=== PATIENT | female | born 1935 | race Caucasian/White ===

== ENCOUNTER 2018-11-17 07:18 | Inpatient (IN) | payer BC ==
[2018-11-17] MEDS ORDERED: GABAPENTIN 300 MG CAPSULE (FP) PO ONE (07:37)
[2018-11-17] MEDS ORDERED: TRANEXAMIC ACID 1000 MG/10 ML VIAL IVPUSH ONE (07:37)
[2018-11-17] MEDS ORDERED: CEFAZOLIN 2 GM in DEXTROSE 5%-WATER - 50 ML IVPB ONE (07:37)
[2018-11-17] MEDS ORDERED: CELECOXIB 200 MG CAPSULE PO ONE (07:37)
[2018-11-17] MEDS ORDERED: oxyCODONE HCL 10 MG SUSTAINED ACTING TABLET PO ONE (07:37)
--- NOTE | 2018-11-17 08:02 | HP ---
Satellite [facility] - Chief Complaint Chief Complaint: right knee pain - Past Medical History Allergies/Adverse Reactions: Allergies Allergy/AdvReac Type Severity Reaction Status Date / Time No Known Drug Allergies Allergy Verified 03/05/12 07:06 - Current Medications Current Medications: Home Medications Medication Instructions Recorded Multivitamin [Daily Multivitamin] 1 each PO DAILY 03/04/12 Acetaminophen [Tylenol] 650 mg PO Q4H #0 tablet 03/10/12 Aspirin Coated [Ecotrin -] 81 mg PO DAILY #0 tablet.ec 03/10/12 Beta-Carotene(A)-Vits C,E/Mins 1 each PO DAILY #0 tablet 03/10/12 [Ocutabs Tablet] Atorvastatin Ca [Lipitor -] 20 mg PO DAILY 06/14/13 Irbesartan/Hydrochlorothiazide 1 tab PO DAILY 06/14/13 [Avalide 150-12.5 mg Tablet] Latanoprost/Pf [Latanoprost 0.005% 7.5 ml OP HS 11/02/18 Eye Drop] Metoprolol Succinate [Toprol XL -] 25 mg PO DAILY 11/02/18 Satellite Physical Exam - Physical Examination General Appearance: Well Nourished, Well Developed, Alert & Oriented x3 ENT: Clear Lung: Normal air movement Heart: Regular rate & rhythm Extremities: Other (right knee- +swelling, + ttp, decr rom, nvi, xrays show grade 4 tricompartmental djd) Neurological: Intact, Alert, Oriented Satellite Impression/Plan - Impression/Plan Impression: right knee djd Operative Procedure: right tushar tkr Date to be Performed: 11/17/18
[2018-11-17 08:28] VITALS: BMI 31.4
[2018-11-17] MEDS ORDERED: MIDAZOLAM HCL 2 MG/2 ML SINGLE DOSE VIAL ONE ×2 (09:01→10:00)
[2018-11-17] MEDS ORDERED: BUPIVACAINE LIPOSOME/PF (EXPAREL) 266 MG/20 ML VIAL ONE (09:01)
[2018-11-17] MEDS ORDERED: ceFAZolin SODIUM 1 GM VIAL ONE ×2 (09:14→09:53)
[2018-11-17] MEDS ORDERED: VANCOMYCIN 1,000 MG VIAL (RESTRICTED TO ID ONLY) ONE (09:14)
[2018-11-17] MEDS ORDERED: BUPIVACAINE HCL/PF 0.5% (5MG/ML) 10 ML VIAL ONE (09:45)
[2018-11-17] MEDS ORDERED: ONDANSETRON 4 MG/2 ML VIAL IVPUSH PRN (09:48)
[2018-11-17] MEDS ORDERED: MAGNESIUM HYDROX 2400MG/30ML ORAL SUSPENSION 30 ML CUP PO PRN (09:48)
[2018-11-17] MEDS ORDERED: MAG HYDROX/AL HYDROX/SIMETH 30 ML UNIT-DOSE CUP PO PRN (09:48)
[2018-11-17] MEDS ORDERED: ePHEDrine SULFATE 50 MG/1 ML AMPULE ONE (09:52)
[2018-11-17] MEDS ORDERED: TRANEXAMIC ACID 1000 MG/10 ML VIAL ONE ×2 (09:53→10:52)
[2018-11-17] MEDS ORDERED: ONDANSETRON 4 MG/2 ML VIAL ONE (09:57)
[2018-11-17] MEDS ORDERED: DEXAMETHASONE SOD PHOSPHATE 4 MG/1 ML VIAL ONE (09:57)
[2018-11-17] MEDS ORDERED: HYDROCHLOROTHIAZIDE PO SCH (10:00)
[2018-11-17] MEDS ORDERED: [UNRECOGNIZED DRUG - OTHER] PO SCH (10:00)
[2018-11-17] MEDS ORDERED: IRBESARTAN PO SCH (10:00)
[2018-11-17] MEDS ORDERED: metoPROLOL SUCCINATE 25 MG TAB.SR.24H (FP) PO SCH (10:00)
[2018-11-17] MEDS ORDERED: LACTATED RINGERS SOLUTION 1,000 ML IV SCH (10:00)
[2018-11-17] MEDS ORDERED: oxyCODONE HCL 5 MG TABLET PO PRN ×2 (11:01)
[2018-11-17] MEDS ORDERED: VANCOMYCIN 1,000 MG VIAL (RESTRICTED TO ID ONLY) IVPB ONE (11:27)
--- NOTE | 2018-11-17 11:55 | OP ---
Operative Note - Note: Operative Date: 11/17/18 (shona) Pre-Operative Diagnosis: right knee djd Operation: right tushar tkr Post-Operative Diagnosis: Same as Pre-op Surgeon: Seth Price Printing Worker Supervisor: Derek Polanco Anesthesiologist/REVENUE ACCOUNTING MANAGER: Dyan Chapa Anesthesia: Spinal, Local Specimens Removed: bone fragments Estimated Blood Loss (mls): 100 Operative Report Dictated: Yes
[2018-11-17] MEDS: ACETAMINOPHEN 1000 MG/100 ML VIAL (NON FORMULARY) IVPB ONE (12:30)
[2018-11-17] MEDS: CEFAZOLIN 2 GM/D5W 2 GM/50 ML ML IVPB SCH (17:52)
[2018-11-17] MEDS: ACETAMINOPHEN 325 MG TABLET (FP) PO SCH (17:52)
[2018-11-17] MEDS: SENNOSIDES/DOCUSATE COMBO (SENNA PLUS) TABLET (UD) PO SCH (21:29)
[2018-11-17] MEDS: ATORVASTATIN CA 20 MG TABLET (FP) PO SCH (21:29)
[2018-11-17] MEDS: oxyCODONE HCL 10 MG SUSTAINED ACTING TABLET PO SCH (21:29)
[2018-11-17] MEDS: GABAPENTIN 300 MG CAPSULE (FP) PO SCH (21:29)
[2018-11-17] MEDS ORDERED: PATIENT'S OWN MEDICATION (NON-FORMULARY) (Latanoprost/Pf [Latanoprost 0.005% Eye Drop] 7.5 OP SCH (22:00)
[2018-11-18] MEDS: CEFAZOLIN 2 GM/D5W 2 GM/50 ML ML IVPB SCH (02:00)
[2018-11-18] MEDS: ACETAMINOPHEN 325 MG TABLET (FP) PO SCH ×4 (06:10→18:38)
[2018-11-18] MEDS: SENNOSIDES/DOCUSATE COMBO (SENNA PLUS) TABLET (UD) PO SCH ×3 (06:51→21:22)
[2018-11-18] MEDS: PANTOPRAZOLE 40 MG TABLET (FP) PO SCH ×2 (06:51→09:12)
[2018-11-18] MEDS: ACETAMINOPHEN 1000 MG/100 ML VIAL (NON FORMULARY) IVPB ONE (06:52)
[2018-11-18 07:55] LABS: HEMATOCRIT 32.3 % (32.4-45.2); HEMOGLOBIN 10.9 GM/dl (10.7-15.3); MCH 31.6 pg (25.7-33.7); MCHC 33.8 g/dl (32.0-36.0); MEAN CELL VOLUME 93.7 fl (80-96); MEAN PLT VOLUME 8.8 fl (7.5-11.1); PLATELET COUNT 281 K/MM3 (134-434); RBC 3.44 M/mm3 (3.60-5.2); RDW 11.7 % (11.6-15.6); WHITE BLOOD COUNT 12.3 K/mm3 (4.0-10.8)
[2018-11-18] MEDS: ASPIRIN 325 MG TABLET PO SCH (08:17)
[2018-11-18] MEDS: LOSARTAN 50MG/HCTZ 12.5MG 1 TAB (FP) PO SCH (09:12)
[2018-11-18] MEDS: GABAPENTIN 300 MG CAPSULE (FP) PO SCH ×2 (09:12→21:22)
[2018-11-18] MEDS: metoPROLOL SUCCINATE 25 MG TAB.SR.24H (FP) PO SCH (09:12)
[2018-11-18] MEDS: MULTIVITAMINS (DAILY MVI) TABLET (FP) PO SCH (09:12)
[2018-11-18] MEDS: oxyCODONE HCL 10 MG SUSTAINED ACTING TABLET PO SCH ×2 (09:12→21:23)
[2018-11-18] MEDS ORDERED: HYDROCHLOROTHIAZIDE 12.5 MG CAPSULE (FP) PO SCH (10:00)
--- NOTE | 2018-11-18 12:00 | PN ---
Progress Note (short form) - Note Progress Note: Ortho Pt seen and examined s/p right tushar tkr pod #1 Selected Entries 11/18/18 09:00 Temperature 98.3 F Pulse Rate 63 Respiratory 16 Rate Blood Pressure 140/73 Laboratory Tests 11/18/18 07:18 WBC 12.3 H Hgb 10.9 Hct 32.3 L Plt Count 281 dressing c/d/i, calf soft, nt rom 0-30, nvi a/p PT dvt ppx pain control d/c planning for rehab/home for tomorrow
--- NOTE | 2018-11-18 13:52 | OP ---
DATE OF OPERATION: 11/17/2018 PREOPERATIVE DIAGNOSIS: Degenerative joint disease, right knee. POSTOPERATIVE DIAGNOSIS: Degenerative joint disease, right knee. PROCEDURE: Right total knee replacement. SURGICAL ATTENDING: Seth Price MD MULTIPLE DRUM SANDER HELPER: LYUBOV Alejandra ANESTHESIA: Spinal and regional. CLOSURE: Cemented Triathlon knee system with a 4 femur, 4 tibia, a 13 TS polyethylene, a 100-mm tibial stem, No. 1 Vicryl to fascia, 0 and 2-0 subcutaneous, and 3-0 Monocryl subcuticular with skin glue, 4-0 undyed Vicryl for pin sites. ESTIMATED BLOOD LOSS: 100 mL. COMPLICATIONS: None. CONDITION: To recovery in stable condition. DESCRIPTION OF OPERATIVE PROCEDURE: Patient was taken to the operating room on November 17, 2018. Spinal anesthesia as well as regional anesthesia were administered by the anesthesiologist. IV Kefzol and TXA were administered prophylactically prior to the case. A well-padded pneumatic tourniquet was placed on the right proximal thigh. The right lower extremity was prepped and draped in the usual sterile fashion. A 10-12-cm longitudinal midline incision was centered over the patella. Hemostasis was achieved with Bovie cautery. Sharp dissection was carried down to the level of the extensor mechanism with sufficient flaps to perform the procedure. Medial parapatellar arthrotomy was then performed. Then, patella was inverted and the knee was flexed up. Subperiosteal dissection was done on the anterior medial proximal tibia. This was done until the knee could be brought forward. This was assisted by transecting the anterior horn of the lateral meniscus. A checkpoint was malletted in both the femur and in the tibia. Two threaded pins were placed anterior medial towards posterior lateral from the medial femoral condyle proximal to the osteotomy level. These pins were fastened to femoral navigation array. With 2 small stab incisions 1 handbreadth below the tibial tubercle, 2 pins were drilled and then secured to the tibial array. The knee was then registered with the navigation device with central rotation of the hip, medial and lateral malleoli, and multiple sites on the femur and the tibia. Confirmation of excellent registration was confirmed by popping the bubbles. At this time, all osteophytes were removed circumferentially, especially large osteophytes medially and posteriorly. The knee was then tensioned varus/valgus and . This was done in both flexion and in extension. There was significant flexion contracture, so, the femur was moved up 2 mm to facilitate that. The tibial bone on the medial side was markedly worn, and the 9-mm cut would be above the bone surface. Therefore, I decided to drop the tibia 2 mm for insertion of at least an 11polyethylene, so, that we can have a flat bone surface to cut. The sizes of the components were optimized in varus/valgus, and rotation was optimized to get equal gaps in both flexion and extension. The robot was then brought into the field and registered. The was then made on both the femur and the tibia using the robotic arm assistance to cut the bone. After the cuts, dog bones were used to ascertain equal gaps in both flexion and extension. This was seen to be the case with a 13-mm insert. There was some laxity at the MCL due to the marked deformity that was preoperatively. Thus, we decided to use a TS implant. Trial at the box was then made in the femur. The trial components were then applied. The range of motion went from full extension to full flexion with excellent stability throughout the range of motion. The patella was calibrated for thickness and osteotomized at the appropriate level. A 32 lollypop was used to drill the lug holes in the patella, and a trial reduction was performed. The patella tracked perfectly throughout the range of motion with no thumbs. The tibial baseplate was confirmed to be with the appropriate rotation by marking the center of rotation on the tibia and ensuring that the navigation device proved that the tibial component was in the appropriate external rotation. The keyhole was then made. There was slight thinning of the cortex medially. It was thus decided to add a stem to the tibial component of 100 mm. It was drilled appropriately. Trial components were removed. The tourniquet was inflated after the leg was exsanguinated with an Esmarch bandage. The tourniquet was inflated to 275 mm. The knee was post antibiotic irrigated and dried. The real components were then cemented in using modern generation cement techniques with antibiotic cement and pressurization. All excess cement was removed. After the cement was hardened, the knee was thoroughly inspected to remove any excess cement. A 13-mm TS implant was then clipped into place. Range of motion was from full extension, full flexion with excellent tracking of the patella throughout. Vancomycin powder was placed in the incision. . The medial parapatellar arthrotomy was then closed using No. 1 Vicryl. Post closing the retinaculum, the knee was again taken through a range of motion to ensure no undue tension after repair and excellent tracking of the patella throughout with excellent varus/valgus and anterior/posterior stability. When this was confirmed, the rest of the closure was performed in layers with 2-0 Vicryl subcutaneous and 3-0 Monocryl subcuticular with skin glue. This was done after the pins and checkpoints were removed. The pin site on the tibia was post antibiotic irrigated and closed with 4-0 undyed Vicryl. Sterile Aquacel dressing followed by a Mcfadden dressing were applied. Patient was awakened from anesthesia and transferred to recovery in stable condition. Tourniquet was deflated at the end of this case. Total tourniquet time was approximately 25 minutes. No complications. Carson TURNER/[id number]
--- NOTE | 2018-11-18 13:54 | PN ---
Progress Note, Physician Chief Complaint: s/p right total knee replacement under spinal anesthesia. History of Present Illness: peripheral nerve block for pain control - Current Medication List Current Medications: Active Medications Acetaminophen (Tylenol -) 650 mg PO Q6H [facility] Stop: 11/20/18 17:59 Last Admin: 11/18/18 11:22 Dose: 650 mg Al Hydroxide/Mg Hydroxide (Mylanta Oral Suspension -) 30 ml PO Q4H PRN PRN Reason: DYSPEPSIA Aspirin (Asa -) 325 mg PO DAILY@0800 [facility] Last Admin: 11/18/18 08:17 Dose: 325 mg Atorvastatin Calcium (Lipitor -) 20 mg PO HS [facility] Last Admin: 11/17/18 21:29 Dose: 20 mg Gabapentin (Neurontin -) 300 mg PO BID [facility] Last Admin: 11/18/18 09:12 Dose: 300 mg HCTZ/Losartan Potassium (Hyzaar -) 1 tab PO DAILY [facility] Last Admin: 11/18/18 09:12 Dose: 1 tab Magnesium Hydroxide (Milk Of Magnesia -) 30 ml PO PRN PRN PRN Reason: CONSTIPATION Metoprolol Succinate (Toprol Xl -) 25 mg PO DAILY [facility] Last Admin: 11/18/18 09:12 Dose: 25 mg Multivitamins/Minerals/Vitamin C (Tab-A-Vit -) 1 tab PO DAILY [facility] Last Admin: 11/18/18 09:12 Dose: 1 tab Non-Formulary Medication (Latanoprost/Pf [Latanoprost 0.005% Eye Drop]) 7.5 ml OP HS [facility] Ondansetron HCl (Zofran Injection) 4 mg IVPUSH Q6H PRN PRN Reason: NAUSEA Oxycodone HCl (Roxicodone -) 5 mg PO Q3H PRN PRN Reason: PAIN LEVEL 1-5 Last Admin: 11/17/18 17:52 Dose: 5 mg Oxycodone HCl (Roxicodone -) 10 mg PO Q3H PRN PRN Reason: PAIN LEVEL 6-10 Oxycodone HCl (Oxycontin -) 10 mg PO BID [facility] Stop: 11/20/18 11:02 Last Admin: 11/18/18 09:12 Dose: 10 mg Pantoprazole Sodium (Protonix -) 40 mg PO DAILY [facility] Last Admin: 11/18/18 09:12 Dose: 40 mg Senna/Docusate Sodium (Pericolace -) 2 tablet PO BID [facility] Last Admin: 11/18/18 09:12 Dose: 2 tablet - Objective Vital Signs: Vital Signs Temperature 98.3 F 11/18/18 09:00 Pulse Rate 63 11/18/18 09:00 Respiratory Rate 16 11/18/18 09:00 Blood Pressure 140/73 11/18/18 09:00 O2 Sat by Pulse Oximetry (%) 95 11/18/18 07:03 Constitutional: Yes: Well Nourished Cardiovascular: Yes: WNL Respiratory: Yes: WNL Gastrointestinal: Yes: WNL Labs: CBC, BMP 11/18/18 07:18 Assessment/Plan No adverse anesthetic complications, pain controlled, complaining of some dry mouth, otherwise the dept of anesthesia will sign off care at this time
[2018-11-18] MEDS: ATORVASTATIN CA 20 MG TABLET (FP) PO SCH (21:21)
[2018-11-19] MEDS: ACETAMINOPHEN 325 MG TABLET (FP) PO SCH ×2 (01:30→05:28)
[2018-11-19 06:50] VITALS: BP 117/49; PULSE 69; TEMP 98.9
[2018-11-19 07:56] LABS: HEMATOCRIT 29.7 % (32.4-45.2); HEMOGLOBIN 9.9 GM/dl (10.7-15.3); MCH 31.4 pg (25.7-33.7); MCHC 33.3 g/dl (32.0-36.0); MEAN CELL VOLUME 94.1 fl (80-96); MEAN PLT VOLUME 8.7 fl (7.5-11.1); PLATELET COUNT 261 K/MM3 (134-434); RBC 3.16 M/mm3 (3.60-5.2); RDW 12.3 % (11.6-15.6); WHITE BLOOD COUNT 10.2 K/mm3 (4.0-10.8)
--- NOTE | 2018-11-19 08:10 | PN ---
Progress Note (short form) - Note Progress Note: Ortho Pt seen and examined s/p right tushar tkr pod #2 Selected Entries 11/19/18 06:00 Temperature 98.9 F Pulse Rate 69 Respiratory 19 Rate Blood Pressure 117/49 L Laboratory Tests 11/19/18 07:01 WBC Pending Hgb Pending Hct Pending Plt Count Pending dressing c/d/i, calf soft, nt rom 0-70, nvi a/p PT dvt ppx pain control d/c planning for rehab
--- NOTE | 2018-11-19 09:37 | DS ---
Physical Examination Vital Signs: Vital Signs Temperature 98.9 F 11/19/18 06:00 Pulse Rate 69 11/19/18 06:00 Respiratory Rate 19 11/19/18 06:00 Blood Pressure 117/49 L 11/19/18 06:00 O2 Sat by Pulse Oximetry (%) 100 11/19/18 06:00 Labs: CBC, BMP 11/19/18 07:01 Discharge Summary Reason For Visit: OSTEOARTHRITIS Procedures: Principal: right tkr Hospital Course: admitted for elective right tushar tkr, uneventful post-op, stable for d/c Condition: Good - Instructions Diet, Activity, Other Instructions: Post-op Instructions-Total Knee Replacement Call the office for a follow-up appointment in 1 week - [phone] Aspirin 325mg daily for 6 weeks. Pain medication was sent into your pharmacy. Apply Graduated Compression Stockings (TEDs) to both lower extremities- remove daily for hygiene ONLY Apply Sequential Compression Device (SCDs) to both Lower extremities remove for PT and hygiene ONLY Apply cold packs to affected area for 15 minutes every 2 hours. Physical Therapist will come to your home for the first 5 days. You will be set up with outpatient PT at your first post-operative visit. Patient may ambulate as tolerated-encourage self care (at least every 2-3 hours while awake) with walker or cane Maintain Aquacel (waterproof) dressing to operative wound (will be removed by surgeon at first office visit) Shower with Aquacel dressing in place-if Aquacel integrity compromised, remove and apply dry sterile dressing and notify Orthopedist. DO NOT SHOWER unless Orthopedists approves without Aquacel dressing CONTACT THE OFFICE FOR ANY CHANGE IN YOUR CONDITION (for example-fever greater than 102 degrees, excessive bleeding from operative site, purulent drainage, severe swelling or pain) GO TO THE EMERGENCY ROOM IF THERE IS A MEDICAL EMERGENCY Knee Precautions: * Keep a rolled towel under affected heel while in bed or chair (to keep knee in extension) * Keep affected leg elevated except during mealtimes * DO NOT PLACE PILLOW UNDER AFFECTED KNEE * If you have any questions, please do not hesitate to call the office - . Referrals: Seth Price MD [Staff Physician] - Disposition: VNS/HOME HEALTH CARE - Home Medications Comprehensive Discharge Medication List: Ambulatory Orders Multivitamin [Daily Multivitamin] 1 each PO DAILY 09/05/12 Acetaminophen [Tylenol .Regular Strength -] 650 mg PO Q4H #0 tablet 03/10/12 Beta-Carotene(A)-Vits C,E/Mins [Ocutabs Tablet] 1 each PO DAILY #0 tablet Atorvastatin Ca [Lipitor] 20 mg PO DAILY 06/14/13 Irbesartan/Hydrochlorothiazide [Avalide 150-12.5 mg Tablet] 1 tab PO DAILY 06/14 Latanoprost/Pf [Latanoprost 0.005% Eye Drop] 7.5 ml OP HS 11/02/18 Metoprolol Succinate [Toprol XL -] 25 mg PO DAILY 11/02/18 Aspirin [ASA -] 325 mg PO DAILY@0800 tablet 11/17/18 Oxycodone HCl/Acetaminophen [Percocet 5-325 mg Tablet -] 1 - 2 tab PO Q6H #50 tab MDD 8 11/17/18
[2018-11-19] MEDS: GABAPENTIN 300 MG CAPSULE (FP) PO SCH (11:02)
[2018-11-19] MEDS: LOSARTAN 50MG/HCTZ 12.5MG 1 TAB (FP) PO SCH (11:02)
[2018-11-19] MEDS: ASPIRIN 325 MG TABLET PO SCH (11:02)
[2018-11-19] MEDS: MULTIVITAMINS (DAILY MVI) TABLET (FP) PO SCH (11:03)
[2018-11-19] MEDS: metoPROLOL SUCCINATE 25 MG TAB.SR.24H (FP) PO SCH (11:03)
[2018-11-19] MEDS: PANTOPRAZOLE 40 MG TABLET (FP) PO SCH (11:03)
[2018-11-19] MEDS: SENNOSIDES/DOCUSATE COMBO (SENNA PLUS) TABLET (UD) PO SCH (11:03)
[2018-11-19] MEDS: oxyCODONE HCL 10 MG SUSTAINED ACTING TABLET PO SCH (11:04)
--- NOTE | 2018-11-19 12:10 | PATH ---
Surgical Pathology Report Patient Name: KAJAL COLLIER Med. Rec. #: [id number] /Age/Gender: 1935 (Age: 83) / F Account: [id number] Location: [facility] MED-SURG Taken: 11/17/2018 Received: 11/17/2018 Reported: 11/19/2018 Physicians: Seth Price M.D. Specimen(s) Received RIGHT KNEE BONES Clinical History Right knee osteoarthritis Final Diagnosis KNEE BONES, RIGHT, TOTAL KNEE REPLACEMENT: DEGENERATIVE JOINT DISEASE. Electronically Signed Corin Lynn M.D. Gross Description Received in formalin labeled "right knee bones" is a 9 x 9 x 6 cm aggregate of multiple portions of bone and soft tissue. The tibial plateau measures 8 x 6 x 2 cm. There are focal areas of eburnation identified. The articular surface is ceron-yellow and diffusely granular. The underlying trabecular bone is yellow and hard. Print Manager sections submitted in one cassette, following decalcification. GENA/11/17/2018 mark/11/17/2018
== END 2018-11-19 13:09 | DRG 470 ==
LOC: FM/S 07:18
PROVIDERS: ADMIT Orthopaedic Surgery; ATTEND Orthopaedic Surgery
PROC: 0SRC0J9 Replacement of Right Knee Joint with Synthetic Substitute, Cemented, Open Approach (ICD-10-PCS; principal; 2018-11-17 10:05)
DX: M17.11 Unilateral primary osteoarthritis, right knee (principal)
CPT/HCPCS: 36415; 73560-TC-RT-FY; 85027; 88304-TC; 88311-TC; 94760; 97116-GP; 97163-GP; J0131

== ENCOUNTER 2019-02-06 21:41 | Emergency (ER) | payer BC, OTHER | END 2019-02-07 01:05 | disposition home or self-care (01) | LOC: JER 21:41 | PROC: 3E033NZ Introduction of Analgesics, Hypnotics, Sedatives into Peripheral Vein, Percutaneous Approach (ICD-10-PCS; principal; 2019-02-06) | DX: S09.90XA Unspecified injury of head, initial encounter (principal); W10.9XXA Fall (on) (from) unspecified stairs and steps, initial encounter; Y93.89 Activity, other specified; Y92.218 Other school as the place of occurrence of the external cause; I10 Essential (primary) hypertension; E78.00 Pure hypercholesterolemia, unspecified; Z96.652 Presence of left artificial knee joint ==

== ENCOUNTER 2023-07-05 01:11 | Emergency (ER) | payer BC ==
[2023-07-05 01:32] VITALS: BP 168/76; PULSE 68; RESP 18; TEMP 97.5; BMI 28.3
[2023-07-05 03:17] LABS: INR 1.09 (0.83-1.09); PROTHROMBIN TIME (PATIENT) 12.6 SEC (9.7-13.0)
[2023-07-05 03:18] LABS: BASO % 0.6 % (0-2.0); EOS % 0.4 % (0-4.5); HEMATOCRIT 29.5 % (32.4-45.2); HEMOGLOBIN 9.8 GM/dL (10.7-15.3); LYMPH % 10.1 % (8-40); MCH 30.2 pg (25.7-33.7); MCHC 33.3 g/dl (32.0-36.0); MEAN CELL VOLUME 90.6 fl (80-96); MEAN PLT VOLUME 7.7 fl (7.5-11.1); MONO % 10.4 % (3.8-10.2); NEUT % 78.5 % (42.8-82.8); PLATELET COUNT 353 10^3/uL (134-434); RBC 3.26 M/mm3 (3.60-5.2); RDW 13.6 % (11.6-15.6); WHITE BLOOD COUNT 8.9 K/mm3 (4.0-10.0)
[2023-07-05 03:30] LABS: POTASSIUM 4.7 mmol/L (3.5-5.1)
[2023-07-05 03:32] LABS: BLOOD UREA NITROGEN 28.7 mg/dL (7-18); CALCIUM 9.6 mg/dL (8.5-10.1)
[2023-07-05 03:33] LABS: ALBUMIN 3.8 g/dl (3.4-5.0)
[2023-07-05 03:36] LABS: CREATININE 1.1 mg/dL (0.55-1.3)
[2023-07-05 03:37] LABS: BILIRUBIN,TOTAL 0.8 mg/dL (0.2-1); TOT PROT 6.6 g/dl (6.4-8.2)
== END 2023-07-05 04:03 | disposition home or self-care (01) ==
LOC: FER 01:11
DX: M79.602 Pain in left arm (principal); L81.9 Disorder of pigmentation, unspecified; M25.512 Pain in left shoulder; S40.022A Contusion of left upper arm, initial encounter; X50.0XXA Overexertion from strenuous movement or load, initial encounter
CPT/HCPCS: 36415; 73030-TC-LT-FY; 73060-TC-LT-FY; 80053; 85025; 85610; 99284-25

== ENCOUNTER 2023-07-07 09:24 | Emergency (ER) | payer BC ==
[2023-07-07 10:13] VITALS: BP 153/79; PULSE 77; RESP 19; TEMP 97.7; BMI 30.1
[2023-07-07] MEDS ORDERED: ACETAMINOPHEN 500 MG TABLET (FP) PO ONE (11:47)
[2023-07-07] MEDS ORDERED: ACETAMINOPHEN 500 MG TABLET (FP) ONE (11:52)
== END 2023-07-07 15:34 | disposition home or self-care (01) ==
LOC: JER 09:24
DX: S40.022A Contusion of left upper arm, initial encounter (principal); M25.511 Pain in right shoulder; S20.02XA Contusion of left breast, initial encounter; X58.XXXA Exposure to other specified factors, initial encounter
CPT/HCPCS: 93971; 99284-25

== ENCOUNTER 2025-02-21 11:51 | Inpatient (IN) | payer BC ==
[2025-02-21 12:48] LABS: ABSOLUTE IMMATURE GRANULOCYTES 0.07 x10^3/uL (0.0-0.031); BASOPHILS # 0.02 x10^3/uL (0.01-0.08); EOSINOPHIL % 0.1 % (0.7-5.8); EOSINOPHILS # 0.01 x10^3/uL (0.04-0.36); MCHC 34.0 g/dl (32.2-35.5); MEAN CELL VOLUME 90.5 fl (79.4-94.8); MEAN PLT VOLUME 9.0 fl (9.4-12.3); MONOCYTE # 0.57 x10^3/uL (0.24-0.86); MONOCYTE % 7.9 % (4.7-12.5); RDW 13.7 % (12.5-17.0)
[2025-02-21 13:50] LABS: TOT PROT 6.5 g/dl (6.4-8.2)
[2025-02-21 13:51] LABS: CO2 23.0 mmol/L (21-32)
[2025-02-21 13:52] LABS: ALK PHOS 52.0 U/L (40-150)
[2025-02-21 13:55] LABS: CREATININE 1.17 mg/dL (0.55-1.3); SGOT/AST 30.0 U/L (5-34); SGPT/ALT 28.0 U/L (0-55)
[2025-02-21 14:02] LABS: GLUCOSE,RANDOM 107.0 mg/dL (74-106)
[2025-02-21 14:06] LABS: HCV DIAGNOSTIC IN-HOUSE W/RFLX NON-REACTIVE (NONREACTIVE)
[2025-02-21 14:11] LABS: HIV INTERPRETATION NEGATIVE (NEGATIVE)
[2025-02-21 14:13] LABS: EPI CELLS 5 /uL (0-25.1); HYALINE CASTS 0 /uL (0-3.1); URINE APPEARANCE CLOUDY; URINE BACTERIA >9,000 /uL (0-1359); URINE BILIRUBIN NEGATIVE (NEGATIVE); URINE COLOR YELLOW; URINE GLUCOSE (UA) NEGATIVE (NEGATIVE); URINE KETONE NEGATIVE (NEGATIVE); URINE LEUK ESTERASE 3+ (NEGATIVE); URINE NITRITE NEGATIVE (NEGATIVE); URINE PROTEIN NEGATIVE (NEGATIVE); URINE RBC 20 /uL (0-23.9); URINE UROBILINOGEN 1.0 mg/dL (0.2-1.0); URINE WBC 346 /uL (0-25.8)
[2025-02-21] MEDS ORDERED: CEFTRIAXONE 1 GM/50 ML BAG ONE (17:06)
[2025-02-21] MEDS: SODIUM CHLORIDE 0.9% 500 ML INFUS.BAG IV ONE ×2 (17:18)
[2025-02-21] MEDS: CEFTRIAXONE 1 GM in DEXTROSE 5%-WATER - 100 ML IVPB ONE (17:18)
[2025-02-21 20:19] LABS: URINE UREA NITROGEN 213.0 mg/dL (350-1000)
[2025-02-21] MEDS: LATANOPROST 0.005% OPHTH SOLN 2.5ML BOTTLE OU SCH (23:00)
[2025-02-21] MEDS: ATORVASTATIN CA 20 MG TABLET (FP) PO SCH (23:00)
[2025-02-22 00:13] VITALS: BMI 31.1
[2025-02-22] MEDS: ACETAMINOPHEN 1000 MG/100 ML BAG IVPB PRN (01:06)
[2025-02-22 07:21] LABS: ABSOLUTE IMMATURE GRANULOCYTES 0.05 x10^3/uL (0.0-0.031); BASOPHILS # 0.02 x10^3/uL (0.01-0.08); EOSINOPHIL % 0.2 % (0.7-5.8); EOSINOPHILS # 0.02 x10^3/uL (0.04-0.36); MCHC 33.8 g/dl (32.2-35.5); MEAN CELL VOLUME 90.3 fl (79.4-94.8); MEAN PLT VOLUME 9.8 fl (9.4-12.3); MONOCYTE # 0.93 x10^3/uL (0.24-0.86); MONOCYTE % 8.2 % (4.7-12.5); RDW 13.4 % (12.5-17.0)
[2025-02-22 07:43] LABS: GLUCOSE,RANDOM 86.0 mg/dL (74-106); TOT PROT 5.3 g/dl (6.4-8.2)
[2025-02-22 07:45] LABS: CO2 21.0 mmol/L (21-32)
[2025-02-22 07:46] LABS: ALK PHOS 44.0 U/L (40-150)
[2025-02-22 07:48] LABS: SGPT/ALT 21.0 U/L (0-55)
[2025-02-22 07:49] LABS: CREATININE 1.14 mg/dL (0.55-1.3); IRON SERUM 21.0 ug/dL (50-175); SGOT/AST 25.0 U/L (5-34)
[2025-02-22 08:00] LABS: IRON SERUM 21 ug/dL (50-175)
[2025-02-22] MEDS: LOSARTAN POTASSIUM 50 MG TABLET PO SCH (09:56)
[2025-02-22] MEDS: HYDROCHLOROTHIAZIDE 12.5 MG CAPSULE (FP) PO SCH (09:57)
[2025-02-22] MEDS: CEFTRIAXONE 1 GM in DEXTROSE 5%-WATER - 50 ML IVPB SCH (09:57)
[2025-02-22] MEDS: SODIUM CHLORIDE 250 ML IV STA (15:36)
[2025-02-22] MEDS: MINERAL OIL/PET HY-PHL TOPICAL OINTMENT 454 GM JAR TP SCH (22:18)
[2025-02-22] MEDS: MAGNESIUM OXIDE 400 MG TABLET (FP) PO SCH (22:19)
[2025-02-22] MEDS: HEPARIN NA (PORCINE) 5,000 UNITS/ML 1ML VIAL SQ SCH (22:20)
[2025-02-23 08:10] LABS: ABSOLUTE IMMATURE GRANULOCYTES 0.05 x10^3/uL (0.0-0.031); BASOPHILS # 0.02 x10^3/uL (0.01-0.08); EOSINOPHIL % 0.8 % (0.7-5.8); EOSINOPHILS # 0.07 x10^3/uL (0.04-0.36); MCHC 33.3 g/dl (32.2-35.5); MEAN CELL VOLUME 91.0 fl (79.4-94.8); MEAN PLT VOLUME 9.6 fl (9.4-12.3); MONOCYTE # 0.75 x10^3/uL (0.24-0.86); MONOCYTE % 9.0 % (4.7-12.5); RDW 13.6 % (12.5-17.0)
[2025-02-23 08:27] LABS: GLUCOSE,RANDOM 87.0 mg/dL (74-106); TOT PROT 5.7 g/dl (6.4-8.2)
[2025-02-23 08:28] LABS: CO2 25.0 mmol/L (21-32)
[2025-02-23 08:30] LABS: ALK PHOS 49.0 U/L (40-150)
[2025-02-23 08:33] LABS: CREATININE 1.17 mg/dL (0.55-1.3); SGOT/AST 23.0 U/L (5-34); SGPT/ALT 21.0 U/L (0-55)
[2025-02-23] MEDS: MULTIVITAMINS (DAILY MVI) TABLET (FP) PO SCH (11:05)
[2025-02-23] MEDS: LIDOCAINE 5% TOPICAL PATCH TP SCH (16:56)
[2025-02-23] MEDS: SODIUM CHLORIDE 250 ML IV STA (19:40)
[2025-02-23] MEDS: LIDOCAINE PATCH REMOVAL MC SCH (22:09)
[2025-02-24 07:38] LABS: ABSOLUTE IMMATURE GRANULOCYTES 0.05 x10^3/uL (0.0-0.031); BASOPHILS # 0.03 x10^3/uL (0.01-0.08); EOSINOPHIL % 1.6 % (0.7-5.8); EOSINOPHILS # 0.12 x10^3/uL (0.04-0.36); MCHC 32.9 g/dl (32.2-35.5); MEAN CELL VOLUME 92.6 fl (79.4-94.8); MEAN PLT VOLUME 9.8 fl (9.4-12.3); MONOCYTE # 0.77 x10^3/uL (0.24-0.86); MONOCYTE % 10.0 % (4.7-12.5); RDW 13.6 % (12.5-17.0)
[2025-02-24 07:42] LABS: GLUCOSE,RANDOM 96.0 mg/dL (74-106); TOT PROT 6.0 g/dl (6.4-8.2)
[2025-02-24 07:44] LABS: CO2 28.0 mmol/L (21-32)
[2025-02-24 07:45] LABS: ALK PHOS 52.0 U/L (40-150)
[2025-02-24 07:48] LABS: CREATININE 0.93 mg/dL (0.55-1.3); SGOT/AST 24.0 U/L (5-34); SGPT/ALT 23.0 U/L (0-55)
[2025-02-24] MEDS: NITROFURANTOIN MONOHYD/M-CRYST 100 MG CAPSULE PO SCH (13:05)
[2025-02-24] MEDS: ATORVASTATIN CA 20 MG TABLET (FP) PO SCH (21:49)
[2025-02-24] MEDS: GABAPENTIN 300 MG CAPSULE PO SCH (21:49)
[2025-02-25 07:38] LABS: ABSOLUTE IMMATURE GRANULOCYTES 0.08 x10^3/uL (0.0-0.031); BASOPHILS # 0.04 x10^3/uL (0.01-0.08); EOSINOPHIL % 1.7 % (0.7-5.8); EOSINOPHILS # 0.13 x10^3/uL (0.04-0.36); MCHC 32.3 g/dl (32.2-35.5); MEAN CELL VOLUME 92.8 fl (79.4-94.8); MEAN PLT VOLUME 9.5 fl (9.4-12.3); MONOCYTE # 1.03 x10^3/uL (0.24-0.86); MONOCYTE % 13.4 % (4.7-12.5); RDW 13.7 % (12.5-17.0)
[2025-02-25 08:19] LABS: GLUCOSE,RANDOM 93.0 mg/dL (74-106); TOT PROT 6.0 g/dl (6.4-8.2)
[2025-02-25 08:20] LABS: CO2 27.0 mmol/L (21-32)
[2025-02-25 08:22] LABS: ALK PHOS 52.0 U/L (40-150)
[2025-02-25 08:24] LABS: SGOT/AST 26.0 U/L (5-34); SGPT/ALT 25.0 U/L (0-55)
[2025-02-25 08:25] LABS: CREATININE 0.92 mg/dL (0.55-1.3)
[2025-02-26 09:52] LABS: GLUCOSE,RANDOM 89.0 mg/dL (74-106)
[2025-02-26 09:53] LABS: CO2 26.0 mmol/L (21-32)
[2025-02-26 09:57] LABS: CREATININE 0.89 mg/dL (0.55-1.3)
[2025-02-28 08:18] LABS: GLUCOSE,RANDOM 75.0 mg/dL (74-106)
[2025-02-28 08:20] LABS: CO2 19.0 mmol/L (21-32)
[2025-02-28 08:24] LABS: CREATININE 0.92 mg/dL (0.55-1.3)
[2025-03-04] MEDS: FUROSEMIDE 20 MG TABLET (FP) PO ONE (14:06)
[2025-03-04 14:12] VITALS: BP 106/61; PULSE 56; RESP 18; TEMP 97.3
== END 2025-03-04 15:13 | DRG 552 ==
LOC: JER 11:51 → JERBED 16:23 → J8W 21:29 → OBSVTOIN 02-22 15:44 → J7W 02-23 13:32
PROVIDERS: ADMIT Internal Medicine
DX: M48.061 Spinal stenosis, lumbar region without neurogenic claudication (principal); N39.0 Urinary tract infection, site not specified; E87.1 Hypo-osmolality and hyponatremia; I10 Essential (primary) hypertension; Z68.31 Body mass index [BMI] 31.0-31.9, adult; H40.9 Unspecified glaucoma; E78.5 Hyperlipidemia, unspecified; R00.1 Bradycardia, unspecified; R63.0 Anorexia; R62.7 Adult failure to thrive; R15.9 Full incontinence of feces; R53.81 Other malaise; R32 Unspecified urinary incontinence; T50.2X5A Adverse effect of carbonic-anhydrase inhibitors, benzothiadiazides and other diuretics, initial encounter; Y92.89 Other specified places as the place of occurrence of the external cause; B96.20 Unspecified Escherichia coli [E. coli] as the cause of diseases classified elsewhere; M54.2 Cervicalgia
CPT/HCPCS: 36415; 72040-TC; 72158-TC; 73706-TC-RT; 80048; 80053; 80069; 81003; 82436; 82550; 82570; 82728; 83036; 83540; 83550; 83735; 83930; 83935; 84100; 84133; 84300; 84439; 84443; 84480; 84540; 85025; 85651; 86140; 86803; 87086; 87389; 93005; 93010; 93970-TC; 97116-GP; 97161-GP; 99285-25; G0378; Q9967